=== PATIENT | female | born 1950 | race Two or more races ===

== ENCOUNTER 2025-02-08 17:11 | Observation (INO) | payer MEDICARE, SELFPAY ==
[2025-02-08] VITALS (10 sets, daily range): BP systolic 112–194; BP diastolic 64–116; BMI 24.2
--- NOTE | 2025-02-08 13:07 | ED.CVA ---
History of Present Illness
General
Chief Complaint: CVA/TIA Symptoms
Source: patient and family
Exam Limitations: none
Time Seen by Provider: 02/08/25 12:52
Onset of Stroke Symptoms
Onset of symptoms known: Yes
Date of onset of symptoms: 01/26/25
History of Present Illness
History of Present Illness:
See MDM
Past History
Past History
ED Past Medical History: Hypercholesterolemia
ED Past Surgical History: None
Social History
Tobacco: Non-smoker
Alcohol: None
Phy Exam
Physical Exam
Physical Exam:
See MDM
NIH Stroke Score
Level of Consciousness: 0 - Alert
LOC questions: 0-Answers both correctly
LOC Commands: 0-Performs both correctly
Best Gaze: 0-Normal
Visual Llanos: 0=Normal, no visual loss
Facial palsy: 0=Normal, symmetrical
Motor - Right Arm: 0=No drift 10 seconds
Motor - Left Arm: 0=No drift 10 seconds
Motor - Right Le-No drift 5 seconds
Motor - Left Le-No drift 5 seconds
Limb Ataxia: 0-Absent
Sensation: 0-Normal
Best Language: 0-No aphasia
Dysarthria: 0-Normal
Extinction and Inattention: 0-No abnormality
Total Score:: 0
Course
Orders/Labs/Results
Orders:
Orders
02/08/25 13:03
Electrocardiogram (*1) Urgent
Reason for Study: TIA/Stroke
EKG- Treatment ONCE
Urinalysis Reflex To Culture Urgent
02/08/25 13:07
Complete Blood Count/With Diff Urgent
Comprehensive Metabolic Panel Urgent
PTT Urgent
Prothrombin Time Urgent
02/08/25 13:10
CT Head & Neck Angio W/wo IV Urgent
Comment:
Reason For Exam: intermittent confusion and ataxia
NEUROLOGY CONSULT Urgent
Consulting Provider: Ml Nevarez
Was physician already notified: Yes
02/08/25 15:07
Diphenhydramine [Benadryl] 25 mg IV NOW STA
02/08/25 15:39
Clopidogrel Bisulfate [Plavix] 600 mg PO NOW STA
02/08/25 15:56
TSH Reflex To Free T4 Routine
Vitamin B12 Routine
Abnormal Lab Results
02/08/25
13:07
Absolute Lymphs (auto) 4.3 H 10^3/uL
(1.2-3.4)
Absolute Monos (auto) 0.8 H 10^3/uL
(0.1-0.6)
BUN 19 H mg/dl
(7-17)
Glucose 105 H mg/dl
(70-99)
Total Bilirubin 1.5 H mg/dl
(0.2-1.3)
AST 52 H U/L
(14-36)
ALT 51 H U/L
(0-35)
Total Protein 8.5 H g/dl
(6.3-8.2)
02/08/25 13:07
02/08/25 13:07
Vital Signs
Initial and Last Documented VS:
Initial Vital Signs
Temp Pulse Resp BP Pulse Ox
98.1 F 58 18 148/69 97
02/08/25 12:34 02/08/25 12:34 02/08/25 12:34 02/08/25 12:34 02/08/25 12:34
Last Documented Vital Signs
Temp Pulse Resp BP Pulse Ox
98.1 F 68 18 154/72 97
02/08/25 12:34 02/08/25 14:30 02/08/25 14:30 02/08/25 14:00 02/08/25 14:15
MDM/Problems Addressed
Differential Diagnosis Includes:
HPI and MDM Narrative:
74-year-old female presenting from PCP office for evaluation of possible stroke. On February 05, daughter noted that patient woke up and had approximately 3 hours of confusion and altered mental status. She has had similar symptoms before but this
lasted longer than expected. Over the past week or so, she had a few more episodes that lasted about 10 minutes. Patient does live alone so is not certain if she has had more of these episodes or not. She was recently placed on cholesterol
medication. Daughter was concerned this could be new onset dementia so they went to the PCP office. Apparently, patient failed llowyn-jw-wour testing in the office and was sent in for stroke workup. On my assessment, finger-nose is appropriate
but she does have mild ataxia and positive Romberg test. Case discussed with neurology. Will obtain CT angiogram and ultimately. Based on duration of symptoms, she is not a TNK
Physical exam
General: Well appearing and non-toxic
HEENT: protecting airway. EOMI. Pupils equal react
Neck: appears supple
CV: No evidence of cyanosis. Regular rate and rhythm
Resp: No accessory muscle use
Abd: Non-distended
Extremities: No deformities
Neuro: alert. Positive Romberg test. Normal finger-nose bilaterally
Psych: Normal affect
Skin: Intact
Problems Addressed including Acute and Chronic Conditions affecting care:
1. Strokelike symptoms
Acuity: acute
Prognosis: stable
Details: Given duration of symptoms, she is not a TNK candidate. Neuro will evaluate but will obtain CT angiogram
Updates
3:40 PM CTA negative for acute blockage. Case rediscussed with neurology. Will admit
Differential Diagnosis (but not limited to): Stroke, rolling TIAs, carotid stenosis, hyponatremia
Testing considered: Carotid ultrasound
Drug therapy (if applicable): OTC meds, please see d/c instruction regarding Rx drugs
Amount and/or Complexity of Data Reviewed
Clinical info obtained from: Patient
External data reviewed: N/A
Labs I independently reviewed (but not limited to): Mild LFT elevation
Radiology: The CT scan was personally and independently reviewed. In addition, official CT report reviewed.
Pulse Ox: not hypoxic
EKG independently reviewed: Sinus bradycardia, normal axis, no STEMI
Plastics Scientist: Sinus rhythm
Critical Care: N/A
Risk of Complication:
Social Determinants of health: Good social support
Discussed with other providers: Neurologist, hospitalist
Escalation of Care includes Admit/Obs: Given concern for CVA versus TIA, will admit
Occasional wrong word or 'sound a like' substitutions may have occurred due to the inherent limitations of voice recognition software. Read the chart carefully and recognize, using context, where substitutions have occurred.
*Critical Care Note
Total Time (30-74mins, 75-104mins- exclusive of procedures): Not Applicable
ED Attending Note
-
Portions of this chart may have been created with voice recognition software.� Occasional wrong word or��sound alike� substitutions may have occurred due to the inherent limitations of voice recognition software.
Discharge Plan
Departure
Patient Disposition: Admit
Date of Disposition: 02/08/25
Time of Disposition: 15:41
Admit to: Telemetry
Presentation/result/management discussed w/ accepting MD/DO: Hospitalist
Discharge Problem:
Ataxia
Prescriptions:
No Action
atorvastatin 20 mg tablet
20 mg PO NOON
escitalopram oxalate 5 mg tablet
5 mg PO NOON
[place] 3/Magnesium
1 dose PO NOON
Referrals:
Caitlyn Jeter DO [Family Provider] -
Interventions
Interventions:
*Risk Screen - Suicide Last Done: 02/08/25 12:34
*General Assessment Last Done: 02/08/25 12:34
*Neglect/Abuse Screening Last Done: 02/08/25 12:34
*ED COVID-19 Vaccine History Last Done: 02/08/25 12:34
ED- Pulmonary Assessment Last Done: 02/08/25 13:33
ED- Neurological Assessment Last Done: 02/08/25 13:33
ED- Cardiac Assessment Last Done: 02/08/25 13:33
ED Swallowing Screen Last Done: 02/08/25 13:33
Discharge Date and Time
Print Language: Italian
[2025-02-08 13:20] LABS: % Basophils 0.7 % (0-2); % Eosinophils 2.7 % (0-6); % Immature Granulocytes 0.3 % (0-0.5); % Lymphocytes 41.3 % (20.5-51.1); % Monocytes 7.6 % (1.7-9.3); % Neutrophils 47.4 % (42.2-75.2); Absolute Basophils 0.1 10^3/uL (0-0.2); Absolute Eosinophils 0.3 10^3/uL (0-0.7); Absolute Lymphocytes 4.3 10^3/uL (1.2-3.4); Absolute Monocytes 0.8 10^3/uL (0.1-0.6); Hematocrit 41.8 % (37.0-47.0); Hemoglobin 14.8 g/dL (12.0-16.0); Mean Corp Hgb Conc. 35.4 g/dL (33.0-37.0); Mean Corpuscular Hgb 30.7 pg (27.0-31.0); Mean Corpuscular Volume 86.7 fL (81.0-99.0); Mean Platelet Volume 9.3 fL (7.4-10.4); Nucleated Red Blood Cells % 0 %; Platelet Count 293 10^3/uL (130-400); Red Blood Cell Count 4.82 10^6/uL (4.20-5.40); White Blood Cell Count 10.5 10^3/uL (4.8-10.8)
[2025-02-08 13:32] LABS: INR 0.91; PT 12.8 Sec (11.4-14.6)
[2025-02-08 13:33] LABS: APTT 23.8 Sec (23.4-35.0)
[2025-02-08 13:34] LABS: ALT (SGPT) 51 U/L (0-35); AST (SGOT) 52 U/L (14-36); Albumin 4.7 g/dl (3.5-5.0); Alkaline Phosphatase 97 U/L (38-126); Blood Urea Nitrogen 19 mg/dl (7-17); Calcium 9.9 mg/dl (8.4-10.2); Carbon Dioxide 28 mmol/L (22-30); Chloride 104 mmol/L (98-107); Glucose 105 mg/dl (70-99); Potassium 4.2 mmol/L (3.5-5.1); Sodium 142 mmol/L (135-145); Total Bilirubin 1.5 mg/dl (0.2-1.3); Total Protein 8.5 g/dl (6.3-8.2); eGFR > 60.00
--- NOTE | 2025-02-08 13:42 | CON.NEURO ---
Consultation
Order
Date of Consultation: 02/08/25
Requesting Provider: Giacomo Goncalves DO
Reason for Consult: Ataxia
Neurology Consultation Note.
HPI: This is a 74-year-old RH woman who referred to [facility] on 04/10/2025 from PCP office for an evaluation and management of encephalopathy and imbalance. According to patient's daughter Ms. Bearden had transient episode of
confusion lasting for at least half an hour on 01/26/2025. At that time she called her within that she did not know where she was. No associated dysarthria, aphasia or perseveration. The patient herself states that she does not recall the spell.
Ms. Bearden reportedly has had progressive short-term memory changes over the last 2 years. She has been misplacing objects and had couple of accidents in the kitchen when she would forget to switch of distal.
The patient reportedly has had recurrent falls due to imbalance. No reports of vertigo, change in vision, sensory deficits, history of strokes family history of neurodegenerative disease
ER VS: 148/69, 58, afebrile
EKG: sinus bradycardia, QTc 436 ms
PDMP:none
Labs: Glucose 105, normal sodium, creatinine, WBCs, bilirubin 1.5, AST�52, ALT�51,
CT head wo contrast/CTA head/neck-mild atrophy; a small focus of enhancement in the region of the calcifications in the right centrum semiovale felt to represent a tiny AVM.
PMH: DLP, STACIE
PSH:none
SH: Lives alone, retired; non-smoker, no history of excessive alcohol use independent in ADLs
FH: No family history of neurodegenerative disease or stroke
All:NKDA
ROS: Constitutional: Negative. Negative for chills, fever and unexpected weight change.
HENT: Negative for ear pain, hearing loss, tinnitus and trouble swallowing.
Eyes: Negative. Negative for photophobia, pain and visual disturbance.
Respiratory: Negative for cough, choking and shortness of breath.
Cardiovascular: Negative for chest pain, palpitations and leg swelling.
Gastrointestinal: Negative for abdominal pain and vomiting.
Endocrine: Negative. Negative for cold intolerance.
Genitourinary: Negative for dysuria, flank pain and urgency.
Musculoskeletal: Negative for back pain, gait problem, neck pain and neck stiffness.
Skin: Negative for rash.
Allergic/Immunologic: Negative. Negative for immunocompromised state.
Neurological: Positive for short-term memory deficits, tremor, ataxia, falls
Psychiatric/Behavioral: Negative for behavioral problems, confusion and hallucinations.
General: Well developed. In no acute distress.
Cardio: Regular rate and rhythm without murmur. Extremities are without cyanosis or edema.
Neuro:
Mental Status: Alert, oriented to person, year, location. Did not know the month, date. Unable to do serial sevens. No aphasia or hemineglect.
Cranial Nerves: Pupils are equally round and reactive to light. EOMs full. Visual shea full to confrontation. No ptosis. No nystagmus. V1-V3 intact to light touch and pinprick bilaterally, symmetric. Face symmetric. Normal hearing AU. The
palate elevated well. SCMs and traps 5/5. Tongue midline. No dysarthria.
Motor: Normal bulk and tone with augmentation. No pronator or arm drift. Strength 5/5 throughout. No clonus.
Reflexes: Negative grasp.
Sensory: Normal vibration at the toes
Coordination: Bilateral action hand tremor. No dysmetria
Gait: Narrow based, short stride, unable to tandem. Pull test�positive.
Assessment and Plan:
I. Ambulatory dysfunction
II. MCI
III. Action hand tremor
IV. Small right centrum semiovale AVM.
-Telemetry monitoring
-Fall precaution
-Medication administration supervision
-Please obtain brain MRI without stacie
-Please check vitamin B12, TFTs
I personally reviewed all radiology and labs along with past medical records pertinent to current medical problems. Total time spent in patient care is 60 minutes.
Thank you for allowing us to participate in the care of this patient. We will continue to follow. Please do not hesitate to contact us with any questions or concerns.
Subjective/Objective
Subjective Data
Date of Service: February 08, 2025
Objective Data
Vital Signs
Temp Pulse Resp BP Pulse Ox
36.7 C 58 18 148/69 97
02/08/25 12:34 02/08/25 12:34 02/08/25 12:34 02/08/25 12:34 02/08/25 12:34
Lab Results
02/08/25 13:07
02/08/25 13:07
PT 12.8 Sec (11.4-14.6) 02/08/25 13:07
INR 0.91 02/08/25 13:07
APTT 23.8 Sec (23.4-35.0) 02/08/25 13:07
Sodium 142 mmol/L (135-145) 02/08/25 13:07
Potassium 4.2 mmol/L (3.5-5.1) 02/08/25 13:07
BUN 19 mg/dl (7-17) H 02/08/25 13:07
Glucose 105 mg/dl (70-99) H 02/08/25 13:07
Calcium 9.9 mg/dl (8.4-10.2) 02/08/25 13:07
Patient Allergies
No Known Allergies Allergy (Unverified 02/08/25 12:38)
Medications
-
Home Medications
�Medication �Instructions �Recorded
[place] 3/Magnesium 1 dose PO NOON 02/08/25
atorvastatin 20 mg tablet 20 mg PO NOON 02/08/25
escitalopram oxalate 5 mg tablet 5 mg PO NOON 02/08/25
Vital Signs and Labs
-
Vital Signs and Labs:
Vital Signs
Temp Pulse Resp BP Pulse Ox
36.7 C 68 18 154/72 97
02/08/25 12:34 02/08/25 14:30 02/08/25 14:30 02/08/25 14:00 02/08/25 14:15
Lab Results
02/08/25 13:07
02/08/25 13:07
PT 12.8 Sec (11.4-14.6) 02/08/25 13:07
INR 0.91 02/08/25 13:07
APTT 23.8 Sec (23.4-35.0) 02/08/25 13:07
Sodium 142 mmol/L (135-145) 02/08/25 13:07
Potassium 4.2 mmol/L (3.5-5.1) 02/08/25 13:07
BUN 19 mg/dl (7-17) H 02/08/25 13:07
Glucose 105 mg/dl (70-99) H 02/08/25 13:07
Calcium 9.9 mg/dl (8.4-10.2) 02/08/25 13:07
Home Medications
-
Home Medications
[place] 3/Magnesium 1 dose PO NOON 02/08/25
atorvastatin 20 mg tablet 20 mg PO NOON 02/08/25
escitalopram oxalate 5 mg tablet 5 mg PO NOON 02/08/25
[2025-02-08] MEDS: BENADRYL 25 MG IV (15:10)
[2025-02-08] MEDS: PLAVIX 600 MG PO (15:52)
--- NOTE | 2025-02-08 16:15 | HPS.HSE ---
Addendum entered and electronically signed by Vineet Camarillo MD 02/08/25 17:23:
Seen and examined by me independently in collaboration with the LAVELL Muller.
Past medical history/social history/medication/allergies reviewed.
Lab data and imaging data reviewed.
Nigerian-speaking but the daughter at bedside who is the platen press operator.
Presents with a confusional episode about 2 weeks ago. Saw PCP today who referred to the ER for stroke workup.
Patient has been having some cognitive decline lately and in fact had an MRI of the brain 6 months ago and saw [facility] neurology and no further recommendations were made at this point. No medications were given at this point and apparently no
stroke identified.
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 No arthritic
symptoms.
Patient currently alert and oriented. Nonfocal neurologically.
CT of the head is negative for acute findings in the CTA showed no evidence of occlusion major vessels.
Admit to telemetry for further neurological workup including stroke workup. Consult neurology. Obtain an MRI with and without contrast. Started on Plavix load by neurology. Continue with aspirin and Plavix. Patient on statin but LFTs are
abnormal so would hold it and get an ultrasound the biliary system first and then consider statins.
Blood pressure on the higher side in the ER but known to have low blood pressure. Follow for now. Not known to have hypertension.
Original Note:
Family Physician
-
Family Physician: Caitlyn Jeter
Chief Complaint
-
Confusion, and Balance Difficulty
History of Present Illness
Patient is a 74 y/o female past medical history of hyperlipidemia, and anxiety who presents with confusion. Additional history obtained from patient's daughter at the bedside. Daughter has noted progressive cognitive decline over the past year.
Daughter notes episodes of confusion tend occur more in the morning. About two weeks ago on January 26 patient had a prolonged episode of confusion where she did not recognize herself in the mirror, and did not know she lived in the [place]. Patient saw
her PCP today who expressed concern for possible stroke and sent her to the emergency department for evaluation as patient's was also noted to have gait abnormality. Daughter notes patient has been experiencing difficulty with balance for quite
some time possibly several years.
Medical History
Past Medical History
Past Medical History: Reports Other
Additional Past Medical History:
Hyperlipidemia
Anxiety
Osteoarthritis
Lyme Disease
Past Surgical History: Reports Other
Additional Past Surgical History:
Appendectomy
Social History
Tobacco: Non-smoker
Alcohol: None
Living: Alone
Family History
Family History: Unable to Obtain
Allergies / Home Medications
Allergies reflects when Allergies were last updated in [facility].
Home Medications with original date entered in [facility]
Allergy/Medication List:
Allergies
Allergy/AdvReac Type Severity Reaction Status Date / Time
No Known Allergies Allergy Unverified 02/08/25 12:38
Home Medications
[place] 3/Magnesium 1 dose PO NOON 02/08/25
atorvastatin 20 mg tablet 20 mg PO NOON 02/08/25
escitalopram oxalate 5 mg tablet 5 mg PO NOON 02/08/25
Review of Systems
-
Unable to obtain full review of systems at this time due to: Language Barrier
Physical Exam
Vital Signs
Vital Signs
Temp Pulse Resp BP Pulse Ox
98.1 F 68 18 154/72 97
02/08/25 12:34 02/08/25 14:30 02/08/25 14:30 02/08/25 14:00 02/08/25 14:15
Physical Exam
General: Comfortable and Conversant
HEENT: Anicteric and Moist mucous membranes
Respiratory: Clear and Non Labored Respirations
Cardiac: S1/S2 and Regular Rhythm
GI: Soft and Non Tender
Rectal: Deferred by Provider
Musculoskeletal: No Clubbing, No Cyanosis and No Edema
Skin: Warm and Dry
Neuro: Awake, Alert and Other (Moves all four extremities appropriately; Follows commands with assistance from daughter for translation)
Psych: Calm
Laboratory Results
-
02/08/25 13:07
02/08/25 13:07
Laboratory Results
PT 12.8 Sec (11.4-14.6) 02/08/25 13:07
INR 0.91 02/08/25 13:07
APTT 23.8 Sec (23.4-35.0) 02/08/25 13:07
Total Bilirubin 1.5 mg/dl (0.2-1.3) H 02/08/25 13:07
AST 52 U/L (14-36) H 02/08/25 13:07
ALT 51 U/L (0-35) H 02/08/25 13:07
Alkaline Phosphatase 97 U/L (38-126) 02/08/25 13:07
Data Reviewed
-
Lab Data: Labs Reviewed by me
Impression/Plan
-
Progressive Cognitive Decline and Ataxia
-Consult Neurology
-Consult PT / OT / Speech
-Attempt to perform cognitive testing, but may be difficult due to language barrier
-Check Brain MRI
-Continue aspirin and Plavix
Elevated LFTs
-Daughter notes recent restarted statin
-Will hold statin for now
-Check Abd US in AM
Uncontrolled Hypertension
-Daughter notes BP usually runs on the low side
-Add hydralazine PRN
-Monitor BP closely
Hyperlipidemia
-Statin on hold as above
Anxiety
-Continue Lexapro
DVT proph: SCDs
Code Status: Full Code
[2025-02-08 17:04] LABS: TSH Reflex To Free T4 5.47 uIU/ml (0.47-4.68)
[2025-02-08 17:23] LABS: Vitamin B12 557 pg/ml (239-931)
[2025-02-08 17:31] LABS: Free T4 0.78 ng/dl (0.78-2.19)
[2025-02-09] VITALS (8 sets, daily range): BP systolic 107–158; BP diastolic 57–98; PULSE 81; O2SAT 97
[2025-02-09 03:49] LABS: Urine Bilirubin Negative (Negative); Urine Character Clear (Clear); Urine Color Yellow; Urine Glucose Negative (Negative); Urine Ketone Negative (Negative); Urine Leukocyte Negative (Negative); Urine Nitrite Negative (Negative); Urine Occult Blood Negative (Negative); Urine Urobilinogen Negative (Neg - 1+)
[2025-02-09 03:59] LABS: Urine Albumin Trace (Neg - Trace)
[2025-02-09 06:59] LABS: Hematocrit 39.9 % (37.0-47.0); Hemoglobin 13.9 g/dL (12.0-16.0); Mean Corp Hgb Conc. 34.8 g/dL (33.0-37.0); Mean Corpuscular Hgb 30.5 pg (27.0-31.0); Mean Corpuscular Volume 87.7 fL (81.0-99.0); Mean Platelet Volume 9.5 fL (7.4-10.4); Platelet Count 257 10^3/uL (130-400); Red Blood Cell Count 4.55 10^6/uL (4.20-5.40); White Blood Cell Count 7.3 10^3/uL (4.8-10.8)
[2025-02-09 07:24] LABS: ALT (SGPT) 50 U/L (0-35); AST (SGOT) 48 U/L (14-36); Albumin 4.6 g/dl (3.5-5.0); Alkaline Phosphatase 87 U/L (38-126); Blood Urea Nitrogen 19 mg/dl (7-17); Carbon Dioxide 28 mmol/L (22-30); Chloride 104 mmol/L (98-107); Estimated Creatinine Clearance 37 ml/min; Glucose 89 mg/dl (70-99); HDL Cholesterol 60 mg/dl; LDL Cholesterol, Calculated 153 mg/dl; Magnesium 2.3 mg/dl (1.6-2.3); Potassium 4.8 mmol/L (3.5-5.1); Sodium 143 mmol/L (135-145); Total Bilirubin 1.7 mg/dl (0.2-1.3); Total Cholesterol 233 mg/dl (50-199); Total Protein 7.5 g/dl (6.3-8.2); Triglyceride 102 mg/dl (10-149); Very Low Density Lipoprotein 20 mg/dl (0-30); eGFR 59.12
[2025-02-09] MEDS: PLAVIX 75 MG PO (08:46)
[2025-02-09] MEDS: LOW STRENGTH ASPIRIN 81 MG PO (08:46)
[2025-02-09 09:30] LABS: Glycohemoglobin (HgbA1c) 5.5 % (4.0-5.6)
--- NOTE | 2025-02-09 10:28 | PTOTSP ---
VALVE INSPECTOR Evaluation
Patient presents with signs concerning for a cognitive linguistic impairment with significant deficits with short term memory (immediate, delayed, working), deficits with jail memory, and executive function (i.e., problem solving, insight into
impact of deficits, safety awareness) deficits. See patient care note for details. Per neurology notes, etiology is suspected to be MCI.
Recommend:
1. Neuropsych evaluation as appropriate.
2. Cognitive evaluation/tx at the outpatient level as appropriate
3. Supervision/assistance with higher level cognitive tasks given changes to STM and executive function
[2025-02-09] MEDS: LEXAPRO 5 MG PO (11:03)
--- NOTE | 2025-02-09 12:37 | W.PN.HOSP.TC ---
Addendum entered and electronically signed by Vineet Camarillo MD 02/09/25 14:10:
Seen and examined by me independently in collaboration with the medical science liaison Dr. Steward.
Lab data and imaging data reviewed.
Addendum as below :
Today's evaluation was with the help of adult basic studies teacher/language line.
Patient is a complaint was intermittent memory deficits. She is currently alert and oriented to place person, date and the month.
No headache currently. No motor weakness. No tingling numbness in hands or legs.
Await MRI brain.
Patient has abnormal LFTs. On further questioning she does complain of some epigastric area discomfort on nausea especially in the mornings. Was happening even at home. Denies any vomiting. No diarrhea. Mild discomfort in epigastric area.
Ultrasound of the abdomen pending. Check a lipase. Will consider further imaging /GI eval depending on ultrasound.
Original Note:
Today's Communication/Plan
-
Abd US, brain MRI. Add protonix
Assessment / Plan
Assessment / Plan
74-year-old female with PMH HLD, cutaneous Lyme disease in July s/, who presented to ED for episodes of confusion/AMS. On day of admission, this episode lasted 3 hours; she has had several episodes lasting about 10 minutes over
the past week or 2. She was evaluated by PCP, who sent her to ED for evaluation of acute stroke. Also has been having gradual cognitive decline, for which she had a brain MRI 6 months ago and saw [facility] neurology who had no further recommendations
at that point.
Acute episodic confusion/AMS
Progressive Cognitive Decline and Ataxia
-Apprec neurology, PT/OT/ST. Passed swallow evaluation, advance diet.
-Head/neck CTA on admission: No acute intracranial pathology, no acute vascular pathology, no M1/M2 occlusion
-Check brain MRI today. Continue telemetry. Fall precautions.
-Continue aspirin and Plavix
Elevated LFTs, recently restarted statin
-Hold home statin for now, ABD US pending
-Trend LFTs, consider restarting statin if appropriate
Elevated blood pressures
-PRN hydralazine ordered given multiple sBP readings 170s-190s yesterday, but has not required any doses
-BPs overnight normal to mild elevated. Continue to monitor. Reassess for antihypertensives as needed.
Hyperlipidemia-Statin on hold as above
Anxiety-Continue Lexapro
Elevated TSH 5.47-Free T4 wnl. Repeat TFTs with PCP to monitor.
Postprandial discomfort/?reflux- Add protonix. Referral to GI outpatient.
Code status: Full
VTE ppx: SCDs, Lovenox
Diet: low chol
Dispo planning: tbd pending clinical course
Head/neck CTA 02/08/25
FINDINGS:
Head:
There is a tiny focus of hyperdensity in the white matter just lateral and superior to the body of the right lateral ventricle left in the centrum semiovale. This is seen best on image 21. It has a density of 78 Hounsfield units. This likely is a
benign calcification.
The imaged paranasal sinuses are clear. There are no extra-axial fluid collections nor masses. No acute fractures are noted.
Head and neck angiogram:
There is no M1 nor M2 occlusion. There is no carotid dissection. There is no focal stenosis. There is mild plaque of the distal right common carotid artery. The posterior circulation is intact.
The imaged paranasal sinuses are clear. There is mild C3/C4 disc space narrowing. The enhanced brain parenchyma shows only a small focus of enhancement in the region of the calcifications in the right subclavian semiovale. This is felt to represent
a tiny AVM.
The salivary glands are within normal limits. There is no significant lymphadenopathy in the neck. Thyroid gland is within normal limits.
The airway is unremarkable. The imaged lungs are clear.
IMPRESSION: No acute intracranial pathology
No acute vascular pathology. No M1 nor M2 occlusion.
Tiny partially calcified AVM as described above.
Anticipated Discharge: 24 - 48 hours
Subjective/Interval History
-
Date of Service: February 09, 2025
No acute events overnight. She feels well overall. Only complaint is 'stomach burning' and nausea which she says she has most days after breakfast. Review of systems negative-- denies headache, dizziness, visual changes, chest pain, shortness of
breath, abdominal pain, vomiting, diarrhea, constipation. Ends Down Checker via iPad was used.
Objective Data
-
Labs:
Laboratory Results
02/09/25 02/09/25
06:24 06:25
WBC 7.3
Hgb 13.9
Hct 39.9
Plt Count 257
Sodium 143
Potassium 4.8
Chloride 104
Carbon Dioxide 28
BUN 19 H
Creatinine 1.0
Glucose 89
Calcium 10.0
Total Bilirubin 1.7 H
AST 48 H
ALT 50 H
Alkaline Phosphatase 87
Vital Signs:
Vital Signs
Temp Pulse Resp BP Pulse Ox
98.6 F 65 18 158/68 96
02/09/25 11:33 02/09/25 11:33 02/09/25 11:33 02/09/25 11:33 02/09/25 11:33
I&O
02/08/25 02/09/25 02/10/25
06:59 06:59 06:59
Output Total 200 / 200
Balance -200 / -200
Review of Systems
-
History Source: Patient
All other systems: Reviewed and negative
Physical Exam
-
General: Well Developed, No Apparent Distress, Comfortable and Conversant (Via family day care worker); Negative Pain, Fever, Chills or Sweats
HEENT: Normocephalic and Atraumatic
Respiratory: Clear to Auscultation and Non Labored Respirations
Cardiac: Regular Rhythm and S1/S2
GI: Soft, Nondistended and Tender (Mild TTP epigastric)
Musculoskeletal: No Clubbing, No Cyanosis and No Edema
Skin: Warm and Dry
Neuro: Awake, Alert and Oriented
Psych: Calm
Data Reviewed
-
CT Scan: Image personally visualized and interpreted and Report Reviewed by me
Ultrasound: Other (Pending)
MRI: Other (Pending)
Labs: Labs Reviewed by me
--- NOTE | 2025-02-09 13:09 | W.PN.NEURO.1 ---
Today's Communication / Plan
-
.
Subjective/Objective
Subjective Data
Date of Service: February 09, 2025
Neurology follow-up note
Ms. Bearden reports no complaints. She states that she has had intermittent bilateral hand tremor worse with anxiety since the diagnosis of Lyme disease that she was treated for. She is not sure why and she was diagnosed though.
Ms. Goncalves recalls an episode of being lost around 5 years ago that required police involvement.
Review of vital signs was notable for intermittent bradycardia.
Brain MRI without maria teresa�unremarkable free
Labs: Vitamin B-12, free T4�normal
PMH: DLP, MARIA TERESA
PSH:none
SH: al[place] alone, retired; holds college degree, non-smoker, no history of excessive alcohol use; independent in ADLs
FH: No family history of neurodegenerative disease or stroke
All:NKDA
ROS: Constitutional: Negative. Negative for chills, fever and unexpected weight change.
HENT: Negative for ear pain, hearing loss, tinnitus and trouble swallowing.
Eyes: Negative. Negative for photophobia, pain and visual disturbance.
Respiratory: Negative for cough, choking and shortness of breath.
Cardiovascular: Negative for chest pain, palpitations and leg swelling.
Gastrointestinal: Negative for abdominal pain and vomiting.
Endocrine: Negative. Negative for cold intolerance.
Genitourinary: Negative for dysuria, flank pain and urgency.
Musculoskeletal: Negative for back pain, gait problem, neck pain and neck stiffness.
Skin: Negative for rash.
Allergic/Immunologic: Negative. Negative for immunocompromised state.
Neurological: Positive for short-term memory deficits, tremor, ataxia, falls
Psychiatric/Behavioral: Negative for behavioral problems, confusion and hallucinations.
General: Well developed. In no acute distress.
Cardio: Regular rate and rhythm without murmur. Extremities are without cyanosis or edema.
Neuro:
Mental Status: Alert, oriented to person, year, did not know the month, date. Poor attention and preserved comprehension.
Cranial Nerves: Pupils are equally round and reactive to light. EOMs full. Visual shea full to confrontation. No ptosis. No nystagmus. V1-V3 intact to light touch and pinprick bilaterally, symmetric. Face symmetric. Normal hearing AU. The
palate elevated well. SCMs and traps 5/5. Tongue midline. No dysarthria.
Motor: Normal bulk and tone with augmentation. No pronator or arm drift. Strength 5/5 throughout. No clonus.
Reflexes: Negative grasp.
Sensory: Normal vibration at the toes
Coordination: Bilateral action hand tremor. No dysmetria
Gait: Narrow based, short stride, unable to tandem. Pull test�positive.
Assessment and Plan:
I. MCI
II. 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
III. Action hand tremor
IV. Small right centrum semiovale AVM.
-Fall precautions
-Medication administration supervision
-Please check orthostatic vital signs
-Please check copper, ceruloplasmin, vitamin E
-OP DaTscan
-Start gabapentin 100 mg nightly with titration by 100 mg every 2-3 days for tremor control.
-OP video nystagmogram, neuropsychological evaluation
-youth care worker consult
-Please recall neurology services any questions or concerns
I personally reviewed all radiology and labs along with past medical records pertinent to current medical problems. Total time spent in patient care is 36 minutes.
Thank you for allowing us to participate in the care of this patient. Please do not hesitate to contact us with any questions or concerns.
Objective Data
Vital Signs
Temp Pulse Resp BP Pulse Ox
37.0 C 65 18 158/68 96
02/09/25 11:33 02/09/25 11:33 02/09/25 11:33 02/09/25 11:33 02/09/25 11:33
Lab Results
02/09/25 06:25
02/09/25 06:24
PT 12.8 Sec (11.4-14.6) 02/08/25 13:07
INR 0.91 02/08/25 13:07
APTT 23.8 Sec (23.4-35.0) 02/08/25 13:07
Sodium 143 mmol/L (135-145) 02/09/25 06:24
Potassium 4.8 mmol/L (3.5-5.1) 02/09/25 06:24
BUN 19 mg/dl (7-17) H 02/09/25 06:24
Glucose 89 mg/dl (70-99) 02/09/25 06:24
Calcium 10.0 mg/dl (8.4-10.2) 02/09/25 06:24
LDL Cholesterol, Calc 153 mg/dl 02/09/25 06:24
Vitamin B12 557 pg/ml (239-931) 02/08/25 15:56
Patient Allergies
No Known Allergies Allergy (Unverified 02/08/25 12:38)
Vital Signs and Labs
-
Vital Signs and Labs:
Vital Signs
Temp Pulse Resp BP Pulse Ox
37.0 C 65 18 158/68 96
02/09/25 11:33 02/09/25 11:33 02/09/25 11:33 02/09/25 11:33 02/09/25 11:33
Lab Results
02/09/25 06:25
02/09/25 06:24
PT 12.8 Sec (11.4-14.6) 02/08/25 13:07
INR 0.91 02/08/25 13:07
APTT 23.8 Sec (23.4-35.0) 02/08/25 13:07
Sodium 143 mmol/L (135-145) 02/09/25 06:24
Potassium 4.8 mmol/L (3.5-5.1) 02/09/25 06:24
BUN 19 mg/dl (7-17) H 02/09/25 06:24
Glucose 89 mg/dl (70-99) 02/09/25 06:24
Calcium 10.0 mg/dl (8.4-10.2) 02/09/25 06:24
LDL Cholesterol, Calc 153 mg/dl 02/09/25 06:24
Vitamin B12 557 pg/ml (962-931) 02/08/25 15:56
Medications
-
Medications:
Generic Name Dose Route Start Last Admin
Trade Name Freq PRN Reason Stop Dose Admin
Acetaminophen 650 mg 02/08/25 20:40
Acetaminophen 650 Mg Rectal Suppository RECTAL 03/08/25 20:39
Q4HPRN PRN
IBANEZ, mild pain, or temp >100.4F
Acetaminophen 650 mg 02/08/25 20:40
Acetaminophen 325 Mg Tablet PO 03/08/25 20:39
Q4HPRN PRN
IBANEZ, mild pain, or temp >100.4F
Aspirin 81 mg 02/09/25 08:00 02/09/25 08:46
Aspirin 81 Mg Chewable Tablet PO 03/09/25 07:59 81 mg
DAILY RICKY Administration
Clopidogrel Bisulfate 75 mg 02/09/25 08:00 02/09/25 08:46
Clopidogrel 75 Mg Tablet PO 03/09/25 07:59 75 mg
DAILY RICKY Administration
Escitalopram Oxalate 5 mg 02/09/25 12:00 02/09/25 11:03
Escitalopram 5 Mg Tablet PO 03/09/25 11:59 5 mg
NOON RICKY Administration
Hydralazine HCl 5 mg 02/08/25 20:40
Hydralazine 20 Mg/Ml Vial IV 03/08/25 20:39
Q4HPRN PRN
SBP>180
Pantoprazole Sodium 40 mg 02/09/25 14:00
Pantoprazole 40 Mg Delayed Release Tablet PO 03/09/25 13:59
DAILY RICKY
Sodium Chloride 0 flush 02/08/25 21:00
Sodium Chloride 0.9% (Flush) Syringe IV 03/08/25 20:59
PER PROTOCOL RICKY
Home Medications
-
Home Medications
[place] 3/Magnesium 1 dose PO NOON Supplement 02/08/25
atorvastatin 20 mg tablet 20 mg PO NOON High Cholesterol 02/08/25
escitalopram oxalate 5 mg tablet 5 mg PO NOON Mental Health/Anxiety 02/08/25
[2025-02-09 14:49] LABS: Lipase 290 U/L (23-300)
--- NOTE | 2025-02-09 15:57 | CM ---
body corporate manager reviewed patient's chart and met with patient, patient is Danish speaking and patient's daughter Hope provided patient's social situation. Patient lives alone was independent with adl's and ambulation, no dme, per daughter lately
patient has confusion episode, plan is to home case aide offered visiting nurses however patient's daughter did not make a decision on visiting nurses.
Plan; Home when stable.
PCP: Caitlyn Jeter
Pharmacy; [facility] in [place].
Plan; Home when stable, will need to follow up with patient's daughter to see if she is agreeable to visiting nurses.
[2025-02-09] MEDS: PROTONIX 40 MG PO (16:39)
[2025-02-09] MEDS: NEURONTIN 100 MG PO (22:34)
[2025-02-09] MEDS: TYLENOL 650 MG PO (23:09)
[2025-02-10 03:15] VITALS: BP 113/69
[2025-02-10 07:10] VITALS: BP 113/56
[2025-02-10 08:18] LABS: Hematocrit 41.5 % (37.0-47.0); Hemoglobin 14.5 g/dL (12.0-16.0); Mean Corp Hgb Conc. 34.9 g/dL (33.0-37.0); Mean Corpuscular Hgb 30.3 pg (27.0-31.0); Mean Corpuscular Volume 86.6 fL (81.0-99.0); Mean Platelet Volume 9.5 fL (7.4-10.4); Platelet Count 286 10^3/uL (130-400); Red Blood Cell Count 4.79 10^6/uL (4.20-5.40); Red Cell Dist. Width 11.9 % (11.5-14.5); White Blood Cell Count 7.6 10^3/uL (4.8-10.8)
[2025-02-10 08:51] LABS: ALT (SGPT) 40 U/L (0-35); AST (SGOT) 37 U/L (14-36); Albumin 4.6 g/dl (3.5-5.0); Alkaline Phosphatase 80 U/L (38-126); Blood Urea Nitrogen 23 mg/dl (7-17); Calcium 9.9 mg/dl (8.4-10.2); Carbon Dioxide 29 mmol/L (22-30); Chloride 102 mmol/L (98-107); Estimated Creatinine Clearance 37 ml/min; Glucose 103 mg/dl (70-99); Magnesium 2.3 mg/dl (1.6-2.3); Potassium 4.8 mmol/L (3.5-5.1); Sodium 141 mmol/L (135-145); Total Bilirubin 1.4 mg/dl (0.2-1.3); Total Protein 7.6 g/dl (6.3-8.2); eGFR 59.12
[2025-02-10] MEDS: LOW STRENGTH ASPIRIN 81 MG PO (09:19)
[2025-02-10] MEDS: PLAVIX 75 MG PO (09:19)
[2025-02-10] MEDS: PROTONIX 40 MG PO (09:19)
[2025-02-10] MEDS: FLUSH (NSS) 1 FLUSH IV (09:20)
[2025-02-10 11:38] VITALS: BP 102/68; BP 138/57; BP 144/79; PULSE 62; PULSE 72; PULSE 79
--- NOTE | 2025-02-10 12:21 | W.PN.HOSP.TC ---
Today's Communication/Plan
-
dc
Assessment / Plan
Assessment / Plan
74-year-old female with PMH HLD, cutaneous Lyme disease in July s/p antibiotics, who presented to ED for episodes of confusion/AMS. On day of admission, this episode lasted 3 hours; she has had several episodes lasting about 10 minutes over
the past week or 2. She was evaluated by PCP, who sent her to ED for evaluation of acute stroke. Also has been having gradual cognitive decline, for which she had a brain MRI 6 months ago and saw [facility] who had no further recommendations
at that point.
Acute episodic confusion/AMS
Progressive Cognitive Decline and Ataxia
-Apprec neurology, PT/OT/ST. Passed swallow evaluation, advance diet.
-Head/neck CTA on admission: No acute intracranial pathology, no acute vascular pathology, no M1/M2 occlusion
-brain MRI no stroke
-Continue aspirin .Hold further Plavix
- Follow OP with neuro for further eval
Elevated LFTs, recently restarted statin
-Hold home statin for now, ABD US with mild hepatic steatosis , GB stones without secondary findings of acute cholecystitis.
- Recommend out patient GI eval.
- Toleraing diet .
- Hold on statins tills seen by GI
Elevated blood pressures
- BPs mostly under goal and no indication for medication
Hyperlipidemia-Statin on hold as above
Anxiety-Continue Lexapro
Elevated TSH 5.47-Free T4 wnl. Repeat TFTs with PCP to monitor.
Postprandial discomfort/?reflux- Added protonix. Referral to GI outpatient.
Code status: Full
VTE ppx: SCDs, Lovenox
Diet: low chol
Dispo planning:Home today
DW daughter on phone and went over the findings , clinicals and follow up plan
Head/neck CTA 02/08/25
FINDINGS:
Head:
There is a tiny focus of hyperdensity in the white matter just lateral and superior to the body of the right lateral ventricle left in the centrum semiovale. This is seen best on image 21. It has a density of 78 Hounsfield units. This likely is a
benign calcification.
The imaged paranasal sinuses are clear. There are no extra-axial fluid collections nor masses. No acute fractures are noted.
Head and neck angiogram:
There is no M1 nor M2 occlusion. There is no carotid dissection. There is no focal stenosis. There is mild plaque of the distal right common carotid artery. The posterior circulation is intact.
The imaged paranasal sinuses are clear. There is mild C3/C4 disc space narrowing. The enhanced brain parenchyma shows only a small focus of enhancement in the region of the calcifications in the right subclavian semiovale. This is felt to represent
a tiny AVM.
The salivary glands are within normal limits. There is no significant lymphadenopathy in the neck. Thyroid gland is within normal limits.
The airway is unremarkable. The imaged lungs are clear.
IMPRESSION: No acute intracranial pathology
No acute vascular pathology. No M1 nor M2 occlusion.
Tiny partially calcified AVM as described above.
Anticipated Discharge: Today
Subjective/Interval History
-
Date of Service: February 10, 2025
No new issues overnight
Tolerating diet
Objective Data
-
Labs:
Laboratory Results
02/10/25
07:42
WBC 7.6
Hgb 14.5
Hct 41.5
Plt Count 286
Sodium 141
Potassium 4.8
Chloride 102
Carbon Dioxide 29
BUN 23 H
Creatinine 1.0
Glucose 103 H
Calcium 9.9
Total Bilirubin 1.4 H
AST 37 H
ALT 40 H
Alkaline Phosphatase 80
Vital Signs:
Vital Signs
Temp Pulse Resp BP Pulse Ox
98.6 F 62 18 102/68 98
02/10/25 11:38 02/10/25 11:38 02/10/25 11:38 02/10/25 11:38 02/10/25 11:38
I&O
02/09/25 02/10/25 02/11/25
06:59 06:59 06:59
Output Total 200 / 200
Balance -200 / -200
Review of Systems
-
Unable to obtain full review of systems at this time due to: Language Barrier
Physical Exam
-
General: Comfortable
HEENT: Moist Mucous Membranes
Respiratory: Non Labored Respirations; Negative Clear to Auscultation or Accessory Resp Muscle Use
Cardiac: Regular Rhythm and S1/S2
GI: Soft and Nontender
Neuro: AO x 3; Negative No Motor Deficits, Slurred Speech or Facial Droop
Psych: Calm
Data Reviewed
-
Diagnostic Radiology: Report Reviewed by me (MRI brain)
[2025-02-10] MEDS: LEXAPRO 5 MG PO (12:46)
--- NOTE | 2025-02-11 16:39 | W.DCSUMMARY ---
Discharge Summary
Discharge Data
Date of Admission: 02/08/25
Date of Discharge: 02/10/25
-
Pending Results: No
Hospital Course
Primary diagnosis:
Acute episodic confusion
Progressive Cognitive Decline and Ataxia
Abnormal liver function test
Postprandial discomfort/reflux
Secondary diagnosis:
Hyperlipidemia
Anxiety
Hospital course:
74-year-old lady with a history of cutaneous Lyme disease in July 2024 was treated with antibiotics, hyperlipidemia was having progressive cognitive disinclined and ataxia and apparently was already seeing a neurologist. She was sent in by PCP
because of episode of acute confusion lasting half an hour on 01/26/2025. She reportedly has had progressive short-term memory changes over the last 2 years. She has been misplacing objects and had couple of accidents in the kitchen when she would
forget to switch of distal.The patient reportedly has had recurrent falls due to imbalance.
She had stroke workup including MRI of the brain which was negative for acute stroke. Was seen by neurologist who recommended Tate scan and outpatient video nystagmogram and neuropsychological evaluation for progressive cognitive decline. There is
also this progressive ataxia and action hand tremor which could be some movement disorder. Neurology started gabapentin 100 mg at bedtime and titrate 100 mg every 2 to 3 days for tremor control. Serum copper still low plasmin and vitamin levels
were checked which are pending.
Also was noted the mild abnormal liver function tests with total bili of 1.4 AST of 37 ALT of 40 and alkaline phos was 80. Ultrasound of the abdomen showed mild steatohepatitis, gallstones without complications. Advised to hold statins for now and
see a GI as an outpatient. She is complaining of postprandial epigastric discomfort advised a trial of PPI.
Consultants on board:
Neurology-[facility]
Discharge Plan
-
Patient Disposition: Home (Routine Discharge)
Discharge Diagnosis/Procedures: Mild cognitive impairment;action hand tremor; subacute progressive ataxia ;abnormal Liver function tests
Diet: Low Cholesterol
Activity: As tolerated
Driving Restrictions: Not until seen by your
Blood Work: Liver function test in 1 week -arrange through your PCP
Referrals:
Caitlyn Jeter, [Family Provider] - in less than 1 week
Nellie Riley DO [Active] - in two to four weeks (For follow up of abnormal Liver function tests)
Prescriptions:
New
pantoprazole 40 mg Tablet,Delayed Release (Dr/Ec)
40 mg PO DAILY Qty: 30 0RF
gabapentin 100 mg Capsule
100 mg PO HS Qty: 30 0RF
Continued
escitalopram oxalate 5 mg tablet
5 mg PO NOON
[place] 3/Magnesium
1 dose PO NOON
Held
atorvastatin 20 mg tablet
20 mg PO NOON
Hold Instructions: Resume on 02/26/25. till cleared by your PCP
Discharge Orders:
Discharge Patient (As Directed); Ordered 02/10/25
Ordered By: Vineet Camarillo
Discharge Date and Time
Discharge Date/Time: 02/10/25 13:36
Print Language: [place]anian
[2025-02-11 22:44] LABS: Ceruloplasmin 28 mg/dL (16-45)
[2025-02-12 08:32] LABS: Copper, Serum 116.1 ug/dL (80.0-155.0)
[2025-02-13 13:16] LABS: Alpha-Tocopherol 11.4 mg/L (5.5-18.0); Gamma-Tocopherol 0.9 mg/L (0.0-6.0)
== END 2025-02-10 13:36 | disposition home or self-care (01) ==
LOC: 4 EAST ACU 17:11
PROVIDERS: Physician Assistant Medical; Student in an Organized Health Care Education/Training Program; ADMITTING PHYSICIAN Internal Medicine; CONSULT PHYSICIAN Psychiatry & Neurology Neurology; EMERGENCY PHYSICIAN Student in an Organized Health Care Education/Training Program; FAMILY PHYSICIAN Family Medicine
DX: R41.0 Disorientation, unspecified (principal); R26.2 Difficulty in walking, not elsewhere classified; R41.89 Other symptoms and signs involving cognitive functions and awareness; R27.0 Ataxia, unspecified; Z79.02 Long term (current) use of antithrombotics/antiplatelets; Z79.82 Long term (current) use of aspirin; R79.89 Other specified abnormal findings of blood chemistry; I10 Essential (primary) hypertension; F41.9 Anxiety disorder, unspecified; E78.00 Pure hypercholesterolemia, unspecified; K21.9 Gastro-esophageal reflux disease without esophagitis; R25.1 Tremor, unspecified; K75.81 Nonalcoholic steatohepatitis (NASH); Z79.899 Other long term (current) drug therapy
CPT/HCPCS: 70496; 70498; 70553; 76700; 80053; 80061; 81003; 82390; 82525; 82607; 83036; 83690; 83735; 84439; 84443; 84446; 85025; 85027; 85610; 85730; 92523; 93005; 96360; 97163; 97167; 99285; A9575; G0378; Q9967